=== PATIENT | male | born 1975 | race Two or more races ===

== ENCOUNTER 2022-08-30 08:07 | Inpatient (IN) | payer MEDICAID ==
[~2022-08-30] VITALS: Ht 170.2 cm; Wt 91.0 kg
[2022-08-30] MEDS ORDERED: SODIUM CHLORIDE 0.9% 1,000 ML IV ONE (10:15)
[2022-08-30] MEDS ORDERED: LORazepam 2 MG/ML VIAL IVP ONE (10:15)
[2022-08-30 11:33] LABS: AMPHET/METH SCREEN,URINE NEGATIVE (NEGATIVE); BARBITURATE SCREEN, URINE NEGATIVE (NEGATIVE); BENZODIAZEPINES SCREEN,URINE NEGATIVE (NEGATIVE); CANNABINOID SCREEN,URINE POSITIVE (NEGATIVE); COCAINE SCREEN,URINE NEGATIVE (NEGATIVE); METHADONE SCREEN, URINE NEGATIVE (NEGATIVE); OPIATE SCREEN,URINE NEGATIVE (NEGATIVE); PHENCYCLIDINE SCREEN,URINE NEGATIVE (NEGATIVE)
[2022-08-30 11:39] LABS: ALANINE AMINOTRANSFERASE 172 U/L (12-78); ALBUMIN 5.7 g/dL (3.4-5.0); ALKALINE PHOSPHATASE 110 U/L (46-116); ANION GAP 17 mmol/L (8-16); ASPARTATE AMINOTRANSFERASE 141 U/L (15-37); CALCIUM, TOTAL 10.2 mg/dL (8.8-10.5); CARBON DIOXIDE 28 mmol/L (22-29); CHLORIDE 91 mmol/L (98-107); GLOMERULAR FILTR. RATE CALC > 60 mL/min (>60); GLUCOSE,RANDOM 88 mg/dL (70-110); SODIUM SERUM 136 mmol/L (136-145)
[2022-08-30 11:43] LABS: POTASSIUM 2.9 mmol/L (3.5-5.1)
[2022-08-30 11:45] LABS: BASOPHILS % (AUTO) 0.8 % (0.0-2.0); EOSINOPHILS % (AUTO) 0.3 % (1.0-6.0); HEMATOCRIT 47.1 % (41-53); HEMOGLOBIN 16.8 g/dL (13.5-17.5); LYMPHOCYTES # (AUTO) 0.7 K/uL (1.0-4.8); LYMPHOCYTES % (AUTO) 13.6 % (22.0-44.0); MEAN CORPUSCULAR HEMOGLOBIN 33.1 pg (26.0-34.0); MEAN CORPUSCULAR HGB CONC 35.6 G/dL (31.0-37.0); MEAN CORPUSCULAR VOLUME 93 fL (80-100); MONOCYTES # (AUTO) 0.8 K/uL (0.1-1.0); MONOCYTES % (AUTO) 15.6 % (2.0-9.0); NEUTROPHILS # (AUTO) 3.6 K/uL (1.8-7.7); NEUTROPHILS % (AUTO) 69.7 % (40.0-70.0); PLATELET COUNT (AUTO) 101 K/uL (150-450); RED BLOOD CELL COUNT(AUTO) 5.06 MIL/uL (4.50-5.90); RED CELL DISTRIBUTION WIDTH 15.5 % (11.5-14.5)
[2022-08-30] MEDS ORDERED: POTASSIUM CHLORIDE 20 MEQ ER TABLET PO ONE (12:30)
[2022-08-30 14:06] LABS: COVID AG,FIA SOURCE NASAL SWAB
[2022-08-30] MEDS ORDERED: ChlordiazePOXIDE HCL 25 MG CAPSULE PO ONE (15:15)
[2022-08-30] MEDS: LORazepam 2 MG TABLET PO PRN (17:34)
[2022-08-30 17:43] VITALS: BP 133/83; PULSE 88; RESP 19; TEMP 98; O2SAT 98
[2022-08-30 19:24] VITALS: BP 146/86; PULSE 100; RESP 18; TEMP 98; O2SAT 98
[2022-08-30] MEDS ORDERED: DOCUSATE SODIUM 100 MG CAPSULE PO PRN (19:45)
[2022-08-30] MEDS ORDERED: MAG HYDROX/AL HYDROX/SIMETH ES 30 ML SUSPENSION UDCUP PO PRN (19:45)
[2022-08-30] MEDS ORDERED: PETROLATUM,WHITE 28 GM JELLY TP PRN (19:45)
[2022-08-30] MEDS ORDERED: LOPERAMIDE HCL 2 MG CAPSULE PO PRN (19:45)
[2022-08-30] MEDS ORDERED: IBUPROFEN 600 MG TABLET PO PRN (19:45)
[2022-08-30] MEDS ORDERED: BENZOCAINE/MENTHOL LOZENGE PO PRN (19:45)
[2022-08-30] MEDS ORDERED: MAGNESIUM HYDROXIDE SUSPENSION 30 ML UDCUP PO PRN (19:45)
[2022-08-30] MEDS ORDERED: CloNIDine HCL 0.1 MG TABLET PO PRN (19:45)
[2022-08-30] MEDS ORDERED: OMEPRAZOLE 20 MG CAPSULE PO PRN (19:45)
[2022-08-30] MEDS ORDERED: BACITRACIN 28 GM OINTMENT TP PRN (19:45)
[2022-08-30] MEDS ORDERED: ACETAMINOPHEN 325 MG TABLET PO PRN (19:45)
[2022-08-30] MEDS ORDERED: ONDANSETRON HCL 4 MG TABLET PO PRN (19:45)
[2022-08-30] MEDS ORDERED: ALBUTEROL SULFATE HFA 90 MCG/PUFF 8 GM INHALER IH PRN (19:45)
[2022-08-30 20:00] VITALS: BP 136/84; PULSE 96; RESP 18; TEMP 98.4
[2022-08-30] MEDS: HALOPERIDOL 5 MG TABLET PO PRN (20:49)
[2022-08-30] MEDS: ZOLPIDEM TARTRATE 10 MG TABLET PO PRN (20:49)
[2022-08-30 21:00] VITALS: BP 134/84; PULSE 96; RESP 18; TEMP 98.4; O2SAT 98
[2022-08-30 22:00] VITALS: RESP 18; TEMP 98.1
[2022-08-30 23:00] VITALS: RESP 18; TEMP 98.1
[2022-08-31] VITALS (7 sets, daily range): BP systolic 114–140; BP diastolic 80–96; PULSE 84–100; RESP 17–18; TEMP 97.4–98.3; O2SAT 98–99
[2022-08-31] MEDS: LORazepam 2 MG TABLET PO PRN ×2 (08:48→15:41)
[2022-08-31] MEDS: HALOPERIDOL 5 MG TABLET PO PRN ×2 (12:27→21:49)
[2022-08-31] MEDS: ZOLPIDEM TARTRATE 10 MG TABLET PO PRN (21:49)
[2022-09-01 03:06] VITALS: RESP 18; TEMP 97.6
[2022-09-01 08:18] LABS: HEMOGLOBIN A1C 4.7 % (3.8-5.6)
[2022-09-01 08:29] VITALS: BP 126/79; PULSE 85; RESP 18; TEMP 97.7; O2SAT 96
[2022-09-01 08:35] LABS: ALANINE AMINOTRANSFERASE 126 U/L (12-78); ALBUMIN 3.7 g/dL (3.4-5.0); ALKALINE PHOSPHATASE 77 U/L (46-116); ANION GAP 12 mmol/L (8-16); ASPARTATE AMINOTRANSFERASE 77 U/L (15-37); BILIRUBIN,TOTAL 1.3 mg/dL (0.1-1.0); CALCIUM, TOTAL 8.8 mg/dL (8.8-10.5); CARBON DIOXIDE 26 mmol/L (22-29); CHLORIDE 97 mmol/L (98-107); CHOLESTEROL 131 mg/dL (131-200); CREATININE 0.71 mg/dL (0.60-1.30); GLOMERULAR FILTR. RATE CALC > 60 mL/min (>60); GLUCOSE,RANDOM 111 mg/dL (70-110); HDL CHOLESTEROL 43 mg/dL (40-60); LDL CHOL (CALC.) 76 mg/dL (0-130); SODIUM SERUM 135 mmol/L (136-145); THYROID STIMULATING HORMONE 0.69 uIU/mL (0.36-3.74); TOTAL PROTEIN, SERUM 6.8 g/dL (6.4-8.2); TRIGLYCERIDES 62 mg/dL (15-150)
[2022-09-01 09:04] LABS: POTASSIUM 2.9 mmol/L (3.5-5.1)
[2022-09-01] MEDS: HALOPERIDOL 5 MG TABLET PO PRN (10:05)
[2022-09-01] MEDS: LORazepam 2 MG TABLET PO PRN ×3 (10:05→20:44)
[2022-09-01] MEDS ORDERED: POTASSIUM CHLORIDE 20 MEQ ER TABLET PO ONE (12:00)
[2022-09-01] MEDS: DIVALPROEX SODIUM 500 MG DR TABLET PO SCH (16:37)
[2022-09-01 20:24] VITALS: BP 129/77; PULSE 72; RESP 18; TEMP 98; O2SAT 97
[2022-09-01] MEDS: ZOLPIDEM TARTRATE 10 MG TABLET PO PRN (20:44)
[2022-09-02] MEDS: DIVALPROEX SODIUM 500 MG DR TABLET PO SCH ×2 (08:17→16:03)
[2022-09-02] MEDS: LORazepam 2 MG TABLET PO PRN (10:29)
[2022-09-02 11:06] VITALS: BP 144/93; PULSE 107; RESP 20; TEMP 98.4; O2SAT 97
[2022-09-02] MEDS: HALOPERIDOL 5 MG TABLET PO PRN ×2 (13:10→21:00)
[2022-09-02 16:03] VITALS: RESP 18
[2022-09-02 17:03] VITALS: RESP 17
[2022-09-02 21:44] VITALS: BP 147/85; PULSE 95; RESP 18; TEMP 97.9; O2SAT 98
[2022-09-03] MEDS: DIVALPROEX SODIUM 500 MG DR TABLET PO SCH ×2 (08:33→16:40)
[2022-09-03] MEDS: HALOPERIDOL 5 MG TABLET PO PRN ×2 (08:33→12:49)
[2022-09-03 09:12] VITALS: BP 133/89; PULSE 91; RESP 18; TEMP 97.5; O2SAT 95
[2022-09-03] MEDS ORDERED: DIVA-112 PO (18:39)
== END 2022-09-03 20:46 | disposition home or self-care (01) | DRG 753 ==
LOC: EMS 08:07 → B2S 14:14
PROVIDERS: ADMIT Psychiatry & Neurology Psychiatry; ATTEND Psychiatry & Neurology Psychiatry
DX: F31.9 Bipolar disorder, unspecified (principal); R45.851 Suicidal ideations; E87.6 Hypokalemia; F19.10 Other psychoactive substance abuse, uncomplicated; F43.10 Post-traumatic stress disorder, unspecified; Z20.822 Contact with and (suspected) exposure to COVID-19; G47.00 Insomnia, unspecified; K59.00 Constipation, unspecified; K21.9 Gastro-esophageal reflux disease without esophagitis; F41.9 Anxiety disorder, unspecified; F10.10 Alcohol abuse, uncomplicated; F17.200 Nicotine dependence, unspecified, uncomplicated
CPT/HCPCS: 80053; 80061; 80307; 83036; 84443; 85025; 99285; G0480; J2060; J7030

== ENCOUNTER 2023-01-22 19:35 | Emergency (ER) | payer MEDICAID ==
[~2023-01-22] VITALS: Ht 167.6 cm; Wt 90.9 kg
[~2023-01-22 19:35] MED LIST: DIVA-112 PO
[2023-01-22 19:45] VITALS: BP 156/117; PULSE 130; RESP 16; TEMP 99.8
[2023-01-22 20:41] LABS: BASOPHILS % (AUTO) 1.2 % (0.0-2.0); EOSINOPHILS % (AUTO) 0.1 % (1.0-6.0); HEMATOCRIT 47.4 % (41-53); HEMOGLOBIN 16.7 g/dL (13.5-17.5); LYMPHOCYTES # (AUTO) 0.5 K/uL (1.0-4.8); LYMPHOCYTES % (AUTO) 8.7 % (22.0-44.0); MEAN CORPUSCULAR HEMOGLOBIN 33.3 pg (26.0-34.0); MEAN CORPUSCULAR HGB CONC 35.1 G/dL (31.0-37.0); MEAN CORPUSCULAR VOLUME 95 fL (80-100); MONOCYTES # (AUTO) 0.6 K/uL (0.1-1.0); MONOCYTES % (AUTO) 9.1 % (2.0-9.0); NEUTROPHILS % (AUTO) 80.9 % (40.0-70.0); PLATELET COUNT (AUTO) 209 K/uL (150-450); RED CELL DISTRIBUTION WIDTH 14.7 % (11.5-14.5); WHITE BLOOD COUNT (AUTO) 6.2 K/uL (4.5-11.0)
[2023-01-22 20:45] LABS: ALCOHOL, BLOOD (SERUM) 171 mg/dL (0-10)
[2023-01-22 21:07] LABS: ANION GAP 16 mmol/L (8-16); CALCIUM, TOTAL 8.8 mg/dL (8.8-10.5); CARBON DIOXIDE 23 mmol/L (22-29); CHLORIDE 92 mmol/L (98-107); CREATININE 1.12 mg/dL (0.60-1.30); GLOMERULAR FILTR. RATE CALC > 60 mL/min (>60); GLUCOSE,RANDOM 240 mg/dL (70-110); POTASSIUM 3.3 mmol/L (3.5-5.1); SODIUM SERUM 131 mmol/L (136-145); UREA NITROGEN, BLOOD 11 mg/dL (7-18)
[2023-01-22 21:17] LABS: ALANINE AMINOTRANSFERASE 100 U/L (12-78); ALBUMIN 4.5 g/dL (3.4-5.0); ALKALINE PHOSPHATASE 110 U/L (46-116); ASPARTATE AMINOTRANSFERASE 70 U/L (15-37); BILIRUBIN,TOTAL 1.2 mg/dL (0.1-1.0); TOTAL PROTEIN, SERUM 8.8 g/dL (6.4-8.2)
[2023-01-22] MEDS ORDERED: ChlordiazePOXIDE HCL 25 MG CAPSULE PO ONE (22:45)
[2023-01-23] MEDS ORDERED: DiphenhydrAMINE HCL 25 MG CAPSULE PO ONE (00:15)
[2023-01-23] MEDS ORDERED: LORazepam 1 MG TABLET PO ONE (00:15)
== END 2023-01-23 00:56 | disposition home or self-care (01) ==
LOC: EMS 19:38
DX: F10.229 Alcohol dependence with intoxication, unspecified (principal); F41.9 Anxiety disorder, unspecified; F31.9 Bipolar disorder, unspecified; F17.210 Nicotine dependence, cigarettes, uncomplicated; F12.90 Cannabis use, unspecified, uncomplicated; Y90.9 Presence of alcohol in blood, level not specified
CPT/HCPCS: 99284; 80053; 80164; 85025; G0480

== ENCOUNTER 2023-01-23 10:03 | Inpatient (IN) | payer MEDICAID ==
[~2023-01-23] VITALS: Ht 170.2 cm; Wt 84.9 kg
[2023-01-23 11:35] VITALS: BP 156/90; PULSE 108; RESP 18; TEMP 98.8
[2023-01-23 13:11] LABS: GLUCOMETER DEV NAME(LOC) POC.BV; POC SARS-COV2 AG, FIA NEGATIVE (NEGATIVE)
[2023-01-23] MEDS ORDERED: INFLUENZA VIRUS VACCINE QVS 2023-24 (6MO+)/PF 60 MCG/0.5 ML SYRINGE IM. ONE (20:15)
[2023-01-23 20:40] VITALS: BP 135/91; PULSE 94; RESP 18; TEMP 98.1
[2023-01-23 20:42] VITALS: BP 135/91; PULSE 94; RESP 18; TEMP 98.1
[2023-01-23 21:42] VITALS: BP 135/90; PULSE 90; RESP 18
[2023-01-23] MEDS ORDERED: ChlordiazePOXIDE HCL 25 MG CAPSULE PO PRN (22:00)
[2023-01-23] MEDS: ZOLPIDEM TARTRATE 10 MG TABLET PO PRN (22:10)
[2023-01-23] MEDS: LORazepam 2 MG TABLET PO PRN (22:10)
[2023-01-23 22:45] VITALS: BP 128/88; PULSE 82; RESP 18
[2023-01-23 23:45] VITALS: RESP 16
[2023-01-24 02:50] VITALS: RESP 16
[2023-01-24] MEDS ORDERED: ChlordiazePOXIDE HCL 25 MG CAPSULE PO PRN (07:00)
[2023-01-24] MEDS: ChlordiazePOXIDE HCL 25 MG CAPSULE PO SCH ×4 (08:06→20:24)
[2023-01-24 08:12] VITALS: BP 130/76; PULSE 76; RESP 17; TEMP 97.8; O2SAT 98
[2023-01-24 08:23] LABS: BASOPHILS % (AUTO) 1.1 % (0.0-2.0); EOSINOPHILS % (AUTO) 1.4 % (1.0-6.0); HEMATOCRIT 43.8 % (41-53); HEMOGLOBIN 15.3 g/dL (13.5-17.5); LYMPHOCYTES # (AUTO) 0.9 K/uL (1.0-4.8); LYMPHOCYTES % (AUTO) 23.6 % (22.0-44.0); MEAN CORPUSCULAR HEMOGLOBIN 33.2 pg (26.0-34.0); MEAN CORPUSCULAR HGB CONC 34.9 G/dL (31.0-37.0); MEAN CORPUSCULAR VOLUME 95 fL (80-100); MONOCYTES # (AUTO) 0.6 K/uL (0.1-1.0); MONOCYTES % (AUTO) 16.2 % (2.0-9.0); NEUTROPHILS # (AUTO) 2.2 K/uL (1.8-7.7); NEUTROPHILS % (AUTO) 57.7 % (40.0-70.0); PLATELET COUNT (AUTO) 106 K/uL (150-450); RED BLOOD CELL COUNT(AUTO) 4.61 MIL/uL (4.50-5.90); WHITE BLOOD COUNT (AUTO) 3.7 K/uL (4.5-11.0)
[2023-01-24 08:50] LABS: ALANINE AMINOTRANSFERASE 70 U/L (12-78); ALBUMIN 3.5 g/dL (3.4-5.0); ALKALINE PHOSPHATASE 87 U/L (46-116); ANION GAP 8 mmol/L (8-16); ASPARTATE AMINOTRANSFERASE 54 U/L (15-37); CARBON DIOXIDE 30 mmol/L (22-29); CHLORIDE 98 mmol/L (98-107); CREATININE 0.76 mg/dL (0.60-1.30); GLOMERULAR FILTR. RATE CALC > 60 mL/min (>60); GLUCOSE,RANDOM 89 mg/dL (70-110); POTASSIUM 3.3 mmol/L (3.5-5.1); SODIUM SERUM 136 mmol/L (136-145); THYROID STIMULATING HORMONE 1.21 uIU/mL (0.36-3.74); TOTAL PROTEIN, SERUM 7.2 g/dL (6.4-8.2); UREA NITROGEN, BLOOD 7 mg/dL (7-18)
[2023-01-24 11:00] VITALS: BP 116/68; PULSE 98; RESP 19; TEMP 97.3; O2SAT 98
[2023-01-24] MEDS: LORazepam 2 MG TABLET PO PRN (13:11)
[2023-01-24] MEDS ORDERED: CloNIDine HCL 0.1 MG TABLET PO PRN (13:45)
[2023-01-24] MEDS ORDERED: ONDANSETRON HCL 4 MG TABLET PO PRN (13:45)
[2023-01-24] MEDS ORDERED: ALBUTEROL SULFATE HFA 90 MCG/PUFF 8 GM INHALER IH PRN (13:45)
[2023-01-24] MEDS ORDERED: MAG HYDROX/ALUMINUM HYD/SIMETH ES 30 ML SUSPENSION UDCUP PO PRN (13:45)
[2023-01-24] MEDS ORDERED: PETROLATUM,WHITE 28 GM JELLY TP PRN (13:45)
[2023-01-24] MEDS ORDERED: ACETAMINOPHEN 325 MG TABLET PO PRN (13:45)
[2023-01-24] MEDS ORDERED: MAGNESIUM HYDROXIDE SUSPENSION 30 ML UDCUP PO PRN (13:45)
[2023-01-24] MEDS ORDERED: LOPERAMIDE HCL 2 MG CAPSULE PO PRN (13:45)
[2023-01-24] MEDS ORDERED: IBUPROFEN 400 MG TABLET PO PRN (13:45)
[2023-01-24] MEDS ORDERED: DOCUSATE SODIUM 100 MG CAPSULE PO PRN (13:45)
[2023-01-24] MEDS ORDERED: NICOTINE 14 MG/24 HOUR PATCH TD PRN (13:45)
[2023-01-24] MEDS ORDERED: GuaiFENesin/D-METHORPHAN [SUGAR-FREE] 200-20MG/10 ML SYRUP UDCUP PO PRN (13:45)
[2023-01-24 15:00] VITALS: BP 130/76; PULSE 78; RESP 16; TEMP 97.7; O2SAT 17
[2023-01-24] MEDS: SERTRALINE HCL 50 MG TABLET PO SCH (15:19)
[2023-01-24] MEDS: ZOLPIDEM TARTRATE 10 MG TABLET PO PRN (20:24)
[2023-01-24 21:05] VITALS: BP 126/82; PULSE 100; RESP 18; TEMP 98; O2SAT 95
[2023-01-25] MEDS: SERTRALINE HCL 50 MG TABLET PO SCH (08:00)
[2023-01-25] MEDS: ChlordiazePOXIDE HCL 25 MG CAPSULE PO SCH ×4 (08:00→20:27)
[2023-01-25] MEDS: LORazepam 2 MG TABLET PO PRN ×3 (08:03→23:36)
[2023-01-25 08:12] VITALS: BP 123/71; PULSE 92; RESP 17; TEMP 98; O2SAT 97
[2023-01-25 09:24] LABS: CHOL/HDL RATIO 2.1 (4.2-7.3); THYROID STIMULATING HORMONE 0.66 uIU/mL (0.36-3.74)
[2023-01-25 11:23] LABS: HEMOGLOBIN A1C 4.7 % (3.8-5.6)
[2023-01-25] MEDS: POTASSIUM CHLORIDE 20 MEQ ER TABLET PO SCH (16:19)
[2023-01-25 20:27] VITALS: BP 103/63; PULSE 74; RESP 17; TEMP 97.8; O2SAT 97
[2023-01-25] MEDS: ZOLPIDEM TARTRATE 10 MG TABLET PO PRN (20:27)
[2023-01-25 23:35] VITALS: BP 120/72; PULSE 80; RESP 18; TEMP 98
[2023-01-26] MEDS: POTASSIUM CHLORIDE 20 MEQ ER TABLET PO SCH (08:29)
[2023-01-26] MEDS: ChlordiazePOXIDE HCL 10 MG CAPSULE PO SCH ×4 (08:29→21:39)
[2023-01-26] MEDS: SERTRALINE HCL 50 MG TABLET PO SCH (08:30)
[2023-01-26] MEDS: LORazepam 2 MG TABLET PO PRN ×3 (08:30→23:26)
[2023-01-26 09:06] VITALS: BP 127/78; PULSE 93; RESP 18; TEMP 97.4; O2SAT 97
[2023-01-26 20:25] VITALS: BP 134/87; PULSE 97; RESP 17; TEMP 97.6; O2SAT 99
[2023-01-26] MEDS: ZOLPIDEM TARTRATE 10 MG TABLET PO PRN (21:39)
[2023-01-27] MEDS ORDERED: ChlordiazePOXIDE HCL 10 MG CAPSULE PO PRN (07:00)
[2023-01-27] MEDS: SERTRALINE HCL 50 MG TABLET PO SCH (08:16)
[2023-01-27 08:27] VITALS: BP 114/75; PULSE 78; RESP 17; TEMP 97.6; O2SAT 99
[2023-01-27] MEDS: LORazepam 2 MG TABLET PO PRN ×2 (11:09→16:24)
[2023-01-27] MEDS: ZOLPIDEM TARTRATE 10 MG TABLET PO PRN (20:03)
[2023-01-27 20:28] VITALS: BP 134/50; PULSE 82; RESP 16; TEMP 97.1; O2SAT 97
[2023-01-28] MEDS: SERTRALINE HCL 50 MG TABLET PO SCH (09:00)
[2023-01-28 09:19] VITALS: BP 113/74; PULSE 86; RESP 18; TEMP 98.1; O2SAT 100
[2023-01-28] MEDS: LORazepam 2 MG TABLET PO PRN ×2 (13:06→21:55)
[2023-01-28] MEDS: ZOLPIDEM TARTRATE 10 MG TABLET PO PRN (21:54)
[2023-01-28 23:05] VITALS: BP 120/75; PULSE 80; RESP 18; TEMP 97.8; O2SAT 99
[2023-01-29 08:45] VITALS: RESP 18; TEMP 98.6
[2023-01-29] MEDS: SERTRALINE HCL 50 MG TABLET PO SCH (09:25)
[2023-01-29] MEDS: LORazepam 2 MG TABLET PO PRN (18:40)
[2023-01-29 20:45] VITALS: BP 124/77; PULSE 76; RESP 18; TEMP 97.6; O2SAT 98
[2023-01-29] MEDS: ZOLPIDEM TARTRATE 10 MG TABLET PO PRN (21:59)
[2023-01-30 08:59] VITALS: BP 114/75; PULSE 75; RESP 17; TEMP 97.9; O2SAT 97
[2023-01-30] MEDS: SERTRALINE HCL 50 MG TABLET PO SCH (09:31)
[2023-01-30 20:28] VITALS: BP 115/77; PULSE 76; RESP 18; TEMP 98.2; O2SAT 98
[2023-01-30] MEDS: ZOLPIDEM TARTRATE 10 MG TABLET PO PRN (21:02)
[2023-01-31 08:43] VITALS: BP 104/60; PULSE 58; RESP 19; TEMP 98.1; O2SAT 99
[2023-01-31] MEDS: SERTRALINE HCL 50 MG TABLET PO SCH (09:55)
[2023-01-31] MEDS: ZOLPIDEM TARTRATE 10 MG TABLET PO PRN (20:23)
[2023-01-31 22:19] VITALS: BP 105/72; PULSE 79; RESP 18; TEMP 98.2; O2SAT 99
[2023-02-01] MEDS: SERTRALINE HCL 50 MG TABLET PO SCH (08:37)
[2023-02-01 09:46] VITALS: BP 122/79; PULSE 72; RESP 16; TEMP 97.4; O2SAT 98
[2023-02-01 10:10] VITALS: BP 122/79; PULSE 72; RESP 17; TEMP 97.4; O2SAT 98
[2023-02-01] MEDS: ZOLPIDEM TARTRATE 10 MG TABLET PO PRN (20:06)
[2023-02-01 20:49] VITALS: BP 135/77; PULSE 73; RESP 20; TEMP 97.8; O2SAT 97
[2023-02-02] MEDS: SERTRALINE HCL 50 MG TABLET PO SCH (08:59)
[2023-02-02 09:25] VITALS: BP 116/79; PULSE 76; RESP 18; TEMP 97.5; O2SAT 97
[2023-02-02] MEDS: ZOLPIDEM TARTRATE 10 MG TABLET PO PRN (20:15)
[2023-02-02 23:30] VITALS: BP 137/79; PULSE 69; RESP 18; TEMP 98; O2SAT 98
[2023-02-03] MEDS: SERTRALINE HCL 50 MG TABLET PO SCH (08:36)
[2023-02-03 08:47] VITALS: BP 139/97; PULSE 85; RESP 17; TEMP 97.3; O2SAT 96
[2023-02-03 20:47] VITALS: BP 139/78; PULSE 61; RESP 18; TEMP 97.5; O2SAT 99
[2023-02-03] MEDS: ZOLPIDEM TARTRATE 10 MG TABLET PO PRN (21:57)
[2023-02-04 09:04] VITALS: BP 119/87; PULSE 94; RESP 17; TEMP 97.3; O2SAT 98
[2023-02-04] MEDS: SERTRALINE HCL 50 MG TABLET PO SCH (09:05)
[2023-02-04 19:57] VITALS: BP 170/98; PULSE 102; RESP 18
[2023-02-04 20:27] VITALS: BP 149/97; PULSE 100; RESP 18; TEMP 98.4
[2023-02-04 21:13] VITALS: BP 135/90; PULSE 97; RESP 18
[2023-02-04] MEDS: ZOLPIDEM TARTRATE 10 MG TABLET PO PRN (21:24)
[2023-02-05 08:49] VITALS: BP 130/85; PULSE 80; RESP 18; TEMP 97.5; O2SAT 97
[2023-02-05] MEDS: SERTRALINE HCL 100 MG TABLET PO SCH (09:11)
[2023-02-05 20:32] VITALS: BP 146/96; PULSE 77; RESP 20; TEMP 98.1; O2SAT 98
[2023-02-05] MEDS ORDERED: TraZODone HCL 100 MG TABLET PO SCH (21:00)
[2023-02-06 08:45] VITALS: BP 130/90; PULSE 98; RESP 18; TEMP 97.8; O2SAT 98
[2023-02-06] MEDS: SERTRALINE HCL 100 MG TABLET PO SCH (09:01)
[2023-02-06] MEDS ORDERED: TRAZ-257 PO (10:49)
[2023-02-06] MEDS ORDERED: SERT-440 PO (10:49)
== END 2023-02-06 13:16 | disposition home or self-care (01) | DRG 751 ==
LOC: B2S 19:11
PROVIDERS: ADMIT Psychiatry & Neurology Child & Adolescent Psychiatry; ATTEND Psychiatry & Neurology Child & Adolescent Psychiatry
PROC: GZHZZZZ Group Psychotherapy (ICD-10-PCS; principal; 2023-01-27)
DX: F33.2 Major depressive disorder, recurrent severe without psychotic features (principal); D72.819 Decreased white blood cell count, unspecified; E87.6 Hypokalemia; E05.90 Thyrotoxicosis, unspecified without thyrotoxic crisis or storm; R74.01 Elevation of levels of liver transaminase levels; F10.10 Alcohol abuse, uncomplicated; F20.9 Schizophrenia, unspecified; Z20.822 Contact with and (suspected) exposure to COVID-19; F41.9 Anxiety disorder, unspecified; Z59.00 Homelessness unspecified; Z79.899 Other long term (current) drug therapy
CPT/HCPCS: 80053; 80061; 83036; 84132; 84439; 84443; 85025; 90686

== ENCOUNTER 2023-01-23 13:50 | Emergency (ER) | payer MEDICAID ==
[~2023-01-23] VITALS: Ht 170.2 cm; Wt 84.1 kg
[2023-01-23 13:56] VITALS: TEMP 98.6
[2023-01-23 14:33] LABS: BASOPHILS % (AUTO) 0.9 % (0.0-2.0); EOSINOPHILS % (AUTO) 0.1 % (1.0-6.0); HEMATOCRIT 44.7 % (41-53); HEMOGLOBIN 15.6 g/dL (13.5-17.5); LYMPHOCYTES # (AUTO) 0.5 K/uL (1.0-4.8); LYMPHOCYTES % (AUTO) 8.9 % (22.0-44.0); MEAN CORPUSCULAR HEMOGLOBIN 32.9 pg (26.0-34.0); MEAN CORPUSCULAR VOLUME 94 fL (80-100); MONOCYTES # (AUTO) 0.6 K/uL (0.1-1.0); MONOCYTES % (AUTO) 11.1 % (2.0-9.0); NEUTROPHILS # (AUTO) 4.5 K/uL (1.8-7.7); PLATELET COUNT (AUTO) 154 K/uL (150-450); RED BLOOD CELL COUNT(AUTO) 4.76 MIL/uL (4.50-5.90); RED CELL DISTRIBUTION WIDTH 14.7 % (11.5-14.5); WHITE BLOOD COUNT (AUTO) 5.7 K/uL (4.5-11.0)
[2023-01-23 14:42] LABS: ANION GAP 10 mmol/L (8-16); CALCIUM, TOTAL 9.3 mg/dL (8.8-10.5); CARBON DIOXIDE 30 mmol/L (22-29); CHLORIDE 94 mmol/L (98-107); CREATININE 0.92 mg/dL (0.60-1.30); GLOMERULAR FILTR. RATE CALC > 60 mL/min (>60); GLUCOSE,RANDOM 119 mg/dL (70-110); POTASSIUM 3.4 mmol/L (3.5-5.1); SODIUM SERUM 134 mmol/L (136-145); UREA NITROGEN, BLOOD 9 mg/dL (7-18)
[2023-01-23 14:48] LABS: ALANINE AMINOTRANSFERASE 83 U/L (12-78); ALBUMIN 4.3 g/dL (3.4-5.0); ALKALINE PHOSPHATASE 104 U/L (46-116); ASPARTATE AMINOTRANSFERASE 51 U/L (15-37); BILIRUBIN,TOTAL 2.1 mg/dL (0.1-1.0); TOTAL PROTEIN, SERUM 8.2 g/dL (6.4-8.2); VALPROIC ACID 4 mcg/mL (50-100)
[2023-01-23 15:00] LABS: ALCOHOL, BLOOD (SERUM) < 3 mg/dL (0-10)
[2023-01-23 15:19] LABS: COVID AG,FIA SOURCE NASOPHARYNGEAL
[2023-01-23 15:31] LABS: ALCOHOL, URINE DRUG SCREEN NEGATIVE (NEGATIVE); AMPHET/METH SCREEN,URINE NEGATIVE (NEGATIVE); BARBITURATE SCREEN, URINE NEGATIVE (NEGATIVE); BENZODIAZEPINES SCREEN,URINE POSITIVE (NEGATIVE); CANNABINOID SCREEN,URINE POSITIVE (NEGATIVE); COCAINE SCREEN,URINE NEGATIVE (NEGATIVE); METHADONE SCREEN, URINE NEGATIVE (NEGATIVE); OPIATE SCREEN,URINE NEGATIVE (NEGATIVE); PHENCYCLIDINE SCREEN,URINE NEGATIVE (NEGATIVE)
[2023-01-23 15:39] LABS: SARS-COV2 (COVID) ANTIGEN,FIA Negative (Negative)
[2023-01-23] MEDS ORDERED: LORazepam 2 MG TABLET PO ONE (17:00)
[2023-01-23] MEDS ORDERED: POTASSIUM CHLORIDE 20 MEQ ER TABLET PO ONE (17:15)
[2023-01-23] MEDS ORDERED: ONDANSETRON HCL 4 MG TABLET PO ONE (17:45)
[2023-01-23 19:02] VITALS: BP 141/89; PULSE 98; RESP 20
== END 2023-01-23 18:30 ==
LOC: EMS 13:55
DX: F32.9 Major depressive disorder, single episode, unspecified (principal); F10.20 Alcohol dependence, uncomplicated; F41.9 Anxiety disorder, unspecified; F17.210 Nicotine dependence, cigarettes, uncomplicated; F12.90 Cannabis use, unspecified, uncomplicated; Z20.822 Contact with and (suspected) exposure to COVID-19; Y90.9 Presence of alcohol in blood, level not specified
CPT/HCPCS: 99284; 87426; 80053; 80164; 85025; 36415; 80307; Q0162; G0480